=== PATIENT | male | born 1995 | race Caucasian/White ===

== ENCOUNTER 2017-03-22 20:20 | Emergency (ER) | payer OTHER ==
[~2017-03-22 20:20] MED LIST: NAPR-576 PO
[2017-03-22 20:22] VITALS: BP 159/86; PULSE 93; RESP 18; TEMP 98.7; O2SAT 98
[2017-03-22] MEDS ORDERED: BACT800T5 PO (22:38)
[2017-03-22] MEDS ORDERED: CEPH-460 PO (22:38)
--- NOTE | 2017-03-22 22:42 | PD ---
HPI Chief Complaint: Skin Problem Time Seen by Provider: 22:37 Travel History International Travel<30 days: No Contact w/Intl Traveler<30days: No Traveled to known affect area: No History of Present Illness HPI This is a 21-year-old male presents for evaluation of area of skin redness and pain on the lateral right lower leg. He first noticed it 2 days ago. He reports itching and burning sensation to the skin, constant, worse with palpation. He believes that maybe he was bitten by a spider. Denies drainage, fevers or chills. He has no other complaints at this time. [facility] Past Medical History Immunizations Current: Yes Social History Alcohol Use: No Tobacco Use: Yes ("VAPES") Substance Use: No Allergies-Medications (Allergen,Severity, Reaction): Coded Allergies: No Known Allergies (Verified , 01/09/16) Reported Meds & Prescriptions Reported Meds & Active Scripts Active Keflex (Cephalexin) 500 Mg Cap 500 Mg PO Q8H 7 Days Bactrim DS (Sulfamethoxazole-Trimethoprim) 800-160 Mg Tab 1 Tab PO BID Naproxen 500 Mg Tab 500 Mg PO BID PRN Review of Systems General / Constitutional: No: Fever, Chills Skin: Positive Other (positive for skin redness, itching, pain) Physical Exam Narrative GENERAL: Well-nourished male in no acute distress SKIN: Warm and dry. 3 cm area of mild erythema and induration to the lateral right lower leg. No drainage or fluctuance. CARDIOVASCULAR: Regular rate and rhythm. No murmur appreciated. RESPIRATORY: No accessory muscle use. Clear to auscultation. Breath sounds equal bilaterally. GASTROINTESTINAL: Abdomen soft, non-tender, nondistended. Hepatic and splenic margins not palpable. MUSCULOSKELETAL: No obvious deformities. No clubbing. No cyanosis. No edema. NEUROLOGICAL: Awake and alert. No obvious cranial nerve deficits. Motor grossly within normal limits. Normal speech. PSYCHIATRIC: Appropriate mood and affect; insight and judgment normal. Data Data Last Documented VS Vital Signs Date Time Temp Pulse Resp B/P (MAP) Pulse Ox O2 Delivery O2 Flow Rate FiO2 03/22/17 20:22 98.7 93 18 159/86 (110) 98 Room Air Orders Orders Ed Discharge Order (03/22/17 22:37) Sulfamet-Trimeth Ds 800-160 Mg (Bactrim (03/22/17 22:45) Cephalexin (Keflex) (03/22/17 22:45) [facility] Medical Decision Making Medical Screen Exam Complete: Yes Emergency Medical Condition: Yes Medical Record Reviewed: Yes Differential Diagnosis Cellulitis, abscess, erysipelas, localized allergic reaction Narrative Course Physical examination is consistent with mild cellulitis to the lateral right lower leg. The patient will be started on Keflex and Bactrim. Discussed signs and symptoms of more to return to the emergency room. Diagnosis Primary Impression: Cellulitis of right leg Additional Instructions: Medication as prescribed. Warm compresses several times a day 15 minutes at a time. Return for new or worsening symptoms. Med/Other Pt SpecificInfo: Prescription(s) given Scripts Cephalexin (Keflex) 500 Mg Cap 500 MG PO Q8H for Infection for 7 Days, #21 CAP 0 Refills Prov: Beck Bellamy MD 03/22/17 Sulfamethoxazole-Trimethoprim (Bactrim DS) 800-160 Mg Tab 1 TAB PO BID for Infection, #14 TAB 0 Refills Prov: Beck Bellamy MD 03/22/17 Disposition: 01 DISCHARGE HOME Condition: Stable Norbert Brusnon Mar 22, 2017 22:42
[2017-03-22] MEDS ORDERED: CEPHALEXIN MONOHYDRATE 500 MG CAP PO ONE (22:45)
[2017-03-22] MEDS ORDERED: SULFAMETHOXAZOLE-TRIMETHOPRIM DS 800-160 MG TAB PO ONE (22:45)
== END 2017-03-22 23:06 | disposition home or self-care (01) ==
LOC: NEPD 20:20
DX: L03.115 Cellulitis of right lower limb (principal); F17.290 Nicotine dependence, other tobacco product, uncomplicated
CPT/HCPCS: 99284